=== PATIENT | male | born 1980 | race Two or more races ===

== ENCOUNTER 2018-04-04 21:50 | Emergency (ER) | payer SELFPAY ==
[~2018-04-04] VITALS: Ht 170.2 cm; Wt 72.0 kg
[2018-04-04 22:19] VITALS: BP 103/91
== END 2018-04-04 23:59 | disposition left against medical advice (07) ==
LOC: EMS 21:51
DX: R25.2 Cramp and spasm (principal); F22 Delusional disorders; Z53.21 Procedure and treatment not carried out due to patient leaving prior to being seen by health care provider